=== PATIENT | male | born 1950 | race Caucasian/White ===

== ENCOUNTER → 2017-01-29 | Outpatient (CLI) | payer OTHER | LOC: CAT 09-11 13:43 | DX: R91.1 Solitary pulmonary nodule (principal) ==

== ENCOUNTER → 2019-04-06 | Outpatient (CLI) | payer OTHER | LOC: CAT 10:14 | DX: J43.9 Emphysema, unspecified (principal); N28.1 Cyst of kidney, acquired; K75.3 Granulomatous hepatitis, not elsewhere classified; I25.10 Atherosclerotic heart disease of native coronary artery without angina pectoris ==

== ENCOUNTER → 2020-03-18 | Outpatient (CLI) | payer OTHER | LOC: CAT 10:04 | PROVIDERS: ATTEND Pediatrics | DX: J43.8 Other emphysema (principal); R91.1 Solitary pulmonary nodule; N28.1 Cyst of kidney, acquired; J84.10 Pulmonary fibrosis, unspecified; J98.4 Other disorders of lung ==

== ENCOUNTER → 2021-04-13 | Outpatient (CLI) | payer OTHER | LOC: CAT 13:06 | PROVIDERS: ATTEND Pediatrics | DX: R91.1 Solitary pulmonary nodule (principal); J43.9 Emphysema, unspecified; N28.1 Cyst of kidney, acquired ==